=== PATIENT | female | born 1955 | race Caucasian/White ===

== ENCOUNTER 2018-06-24 10:31 | Outpatient (REF) | payer BC, SELFPAY ==
[2018-06-24 19:16] LABS: Cholesterol 243 mg/dL (50-200); HDL Cholesterol 125 mg/dL (40-60); LDL CHOLESTEROL 105 mg/dL (<100); Triglyceride 56 mg/dL (30-150)
== END 2018-06-24 10:51 ==
LOC: NCHCN 10:31
PROVIDERS: PCP Internal Medicine; Visit Provider Nurse Practitioner Family
DX: Z00.00 Encounter for general adult medical examination without abnormal findings (principal); Z13.220 Encounter for screening for lipoid disorders
CPT/HCPCS: 80061; 83721

== ENCOUNTER 2018-11-18 00:43 | Outpatient (CLI) | payer BC, SELFPAY ==
--- NOTE | 2018-11-18 10:00 | DI.MAMMO_ITS ---
SYMPTOM/DIAGNOSIS: SCREENING, Z12.31 MAMMOGRAMS: Mammograms were interpreted according to the usual protocol including computer analysis with CAD system, tomosynthesis and C view imaging. Comparison is made with exams from [id number]. The breasts are composed of fatty density tissue, breast density, category A. No suspicious masses or suspicious microcalcifications are seen. There has been no significant change. IMPRESSION: Category 1, negative mammogram. Yearly screening mammography is recommended. [facility] ASSESSMENT OF FINDINGS: Negative. Category 1. Patient will receive a letter notifying them of these results. BI-RAD category A. The breasts are almost entirely fatty.
== END 2018-11-18 01:03 ==
PROVIDERS: PCP Internal Medicine; Visit Provider Nurse Practitioner Family
DX: Z12.31 Encounter for screening mammogram for malignant neoplasm of breast (principal)
CPT/HCPCS: 77063; 77067

== ENCOUNTER 2018-12-20 11:12 | Day surgery (SDC) | payer BC, SELFPAY ==
[2018-12-20 11:27] VITALS: BP 111/76; PULSE 71; RESP 18; TEMP 35.5; O2SAT 99
[2018-12-20] MEDS: Lactated Ringers 1,000 ML 80 ML IV (11:50)
--- NOTE | 2018-12-20 14:18 | W.COLOREPORT ---
Date of service: 12/20/18 Time of Service: 14:18 Colonoscopy Report Date of procedure: 12/20/18 Pre-op diagnosis general: crc screen Post-op diagnosis procedure note: same Procedure: CE Anesthesia proc note operative: GETA Estimated blood loss (mL): 0 Pathology: none sent Complications: None Disposition: same day Prep: Miralax Retraction Time: 10 mins Procedure Description: After informed consent was obtained the patient was taken to the procedure room and placed in a left decubitous position. Monitors were applied and a time out was done. The patients name, date of , procedure, allergies to medications and metal in their body was reviewed. The patient was then sedated. Once sedated and comfortable a rectal exam was done. External exam was normal. Internal exam revealed a normal sphincter tone and no palpable masses. The scope was then introduced and retrofelexed. no internal hemorrhoids were identified. The scope was then advanced to the cecum without difficulty. The TI and appendiceal orifice were identified. The prep was good. The scope was then slowly retracted over 10 minutes back into the rectum. No AVM'S/polyps/diverticuli seen. The muscosa was pink adn healthy adn nl vasculature. The scope was removed and the patient was woken up and taken back to Same day surgery in stable condition. The patient tolerated the procedure well and there were no immediate complications. Follow up: The patient should follow up in 10 years unless they develop changes in bowel habits or other new gastrointestinal complaints.
--- NOTE | 2018-12-20 14:20 | W.PM.DSUDISC ---
Discharge Plan Disposition Patient Disposition: HOME Condition: Good Discharge Details Reason For Visit: colon scope Attending Provider: Karlene Leonard Primary Care Provider: Glynn Marquez Home Meds and New Rx's Prescriptions: Continued aspirin [Adult Aspirin Regimen] 81 mg tablet,delayed release (DR/EC) 81 mg PO DAILY RF: 0 omega-3 fatty acids [Fish Oil Concentrate] 1,000 mg capsule 1,000 mg PO DAILY RF: 0 ascorbic acid (vitamin C) 1,000 MG tablet 1,000 mg PO DAILY RF: 0 potassium gluconate 99 MG tablet 99 mg PO DAILY RF: 0 Discontinued polyethylene glycol 3350 17 gram/dose powder 238 g PO ONCE Qty: 238 RF: 0 bisacodyl [Dulcolax (bisacodyl)] 5 mg tablet,delayed release (DR/EC) 5 mg PO ONCE Qty: 4 RF: 0 Discharge Instructions Instructions: High Fiber Diet (GEN) Additional Instructions: Findings: normal Follow up:repeat in 10 yrs time Please call if you develop: fevers >101.5 Nausea or Vomiting Abdominal pain that is not transient DAY SURGERY UNIT POST COLONOSCOPY INSTRUCTIONS 1. Because there will be medication in your system for the next 24 hours, you may feel a little sleepy. Your coordination will be affected. Therefore: a. Do not drive or operate dangerous equipment for 24 hours. b. Do not drink alcohol beverages for 24 hours (not even beer). c. Plan to go home and rest for the day. 2. Generally there are no restrictions on your activity after a day or so has gone by, but you may feel a bit fatigued for a few days. 3 After you arrive home you may have a light meal and return to a normal diet as you can tolerate it without feeling sick to your stomach. 4. After surgery, you may feel pain or discomfort. This should be only transient, but if it persists please contact your doctor. 5. If there are any questions regarding the findings of your procedure, please feel free to contact your doctor. 6. If you are unable to contact your doctor with a problem, contact the hospital at [phone]. 7. Continue all your regular medications unless directed otherwise. I understand the above instructions and have no questions. Signature of Patient or Responsible Adult Escort Date/Time Name of Responsible Adult Escort Signature of Nurse Date/Time Stand Alone Forms: Aneudy Mackey (DSU) Activity:: no strenous activity or heavy lifting or driving for 24 hrs Diet:: sm lt meals today Discharge Orders Discharge Orders: Discharge Order (Routine); Ordered 12/20/18 Ordered By: Karlene Leonard DS: Diagnosis Discharge Diagnosis (1) Encounter for screening colonoscopy: Status: Acute
[2018-12-20 14:55] VITALS: BP 111/69; PULSE 59; RESP 18; TEMP 36.6; O2SAT 99
== END 2018-12-20 15:04 | disposition home or self-care (01) ==
PROVIDERS: PCP Internal Medicine; Visit Provider Surgery
PROC: 0DJD8ZZ Inspection of Lower Intestinal Tract, Via Natural or Artificial Opening Endoscopic (ICD-10-PCS; CPT 45378; principal; 2018-12-20 11:15)
DX: Z12.11 Encounter for screening for malignant neoplasm of colon (principal)
CPT/HCPCS: 45378

== ENCOUNTER 2020-01-22 01:53 | Outpatient (CLI) | payer BC, SELFPAY ==
--- NOTE | 2020-01-22 11:00 | DI.MAMMO_ITS ---
EXAM: MAMMO SCREENING CLINICAL HISTORY: screening TECHNIQUE: Mammograms were interpreted according to the usual protocol including computer analysis w [employer] CAD system, tomosynthesis and C-view imaging. COMPARISON: FINDINGS: The breasts are of moderate density with fairly symmetrical distribution fibroglandular tissue. No d ominant mass is identified in either breast. There is a group of benign-appearing calcifications of posterior aspect of the left breast seen on MLO view which stable in comparison with prior studies. No suspicious microcalcification seen. No other significant change in comparison previous examinatio ns including October 2018. IMPRESSION: No specific evidence of malignancy at this time. Routine screening examinations are suggested yearly intervals in this age group according to the ACS ACR guidelines. BI-RADS Category 1 - Negative Breast Density - Category B - Scattered areas of fibroglandular density
== END 2020-01-22 02:13 ==
PROVIDERS: PCP Internal Medicine; Visit Provider Nurse Practitioner Family
DX: Z12.31 Encounter for screening mammogram for malignant neoplasm of breast (principal)
CPT/HCPCS: 77063; 77067

== ENCOUNTER 2021-03-31 01:28 | Outpatient (CLI) | payer BC, SELFPAY ==
--- NOTE | 2021-03-31 09:30 | DI.MAMMO_ITS ---
Exam(s) MAMMO SCREENING EXAM: MAMMO SCREENING CLINICAL HISTORY: screening TECHNIQUE: Mammograms were interpreted according to the usual protocol including computer analysis w [employer] CAD system, tomosynthesis and C-view imaging. COMPARISON: 2010 through 2019 FINDINGS: The breasts are composed of scattered fibroglandular densities, Breast Density category B. No suspicious masses or suspicious microcalcifications are seen. No skin thickening or abnormal axillary lymph nodes are seen. There has been no significant change from prior exams. IMPRESSION: BI-RADS Category 1, Negative mammogram Yearly screening mammography is recommended. Breast Density - Category B, scattered fibroglandular densities. A negative radiographic report should not delay biopsy if a dominant or clinically suspicious mass is present. Up to ten percent of cancers are not identified on mammography. A negative report may reinforce clinical impression. Adenosis and dense breasts may obscure an underlying neoplasm. False positive reports average 6 to 10%. Patient will receive a letter notifying them of these results.
== END 2021-03-31 01:48 ==
PROVIDERS: PCP Internal Medicine; Visit Provider Nurse Practitioner Family
DX: Z12.31 Encounter for screening mammogram for malignant neoplasm of breast (principal)
CPT/HCPCS: 77063; 77067

== ENCOUNTER 2021-03-31 12:26 | Outpatient (REF) | payer BC, SELFPAY ==
--- NOTE | 2021-03-31 11:00 | PAPFT_PTH ---
PATIENT: Karlene Ambrocio LOC: [facility] U#:[id number] AGE/SX: 65/F ROOM: RE03/31/[address]: LULU Allen : 1955 BED: DIS: 03/31/2021 SPEC #: [id number] RECD: 03/31/21 13:12 STATUS: RHONDA REJoseph #: [id number] NOY: 03/31/21 11:[address]: Jana Dias DEPT: [facility] Cytology RECD BY: Zaira Yan ENTERED: 03/31/21 13:13 SP TYPE: PAPFT OTHR DR: Glynn Marquez Tissues: 1 - CX/ENDOCX FOR PAP SMEARS Procedures: PAP THIN PREP/UVM Screening HPV DNA PROBE Comments: [id number]
== END 2021-03-31 12:27 | disposition home or self-care (01) ==
LOC: LBN 12:26
PROVIDERS: PCP Internal Medicine; Visit Provider Nurse Practitioner Family
DX: Z12.4 Encounter for screening for malignant neoplasm of cervix (principal); Z11.51 Encounter for screening for human papillomavirus (HPV); Z01.419 Encounter for gynecological examination (general) (routine) without abnormal findings
CPT/HCPCS: 88142; 87624

== ENCOUNTER → 2022-05-25 02:56 | Outpatient (CLI) | payer BC, SELFPAY ==
--- NOTE | 2022-05-25 06:45 | DI.MAMMO_ITS ---
Exam(s) MAMMO SCREENING EXAM: MAMMO SCREENING CLINICAL HISTORY: screening,z12.39 TECHNIQUE: Bilateral full field digital CC and MLO mammographic images were obtained with 3D tomosyn thesis and utilizing computer aided detection (CAD). COMPARISON: Available for comparison. FINDINGS: Masses/Architectural Distortion: None seen. Microcalcifications: No suspicious pleomorphic-type are seen. Skin Thickening/Nipple Retraction: None. IMPRESSION: 1. No significant interval change with no specific features of malignancy noted. 2. Unless there is more urgent need, screening mammography is recommended, as per [employer] guidelines. BI-RADS Category 1 - Negative Breast Density - Category B - Scattered areas of fibroglandular density Breast density category C or D implies that the patient has dense breast tissue. Dense breast tissue is very common and is not abnormal but dense breast tissue can make it harder to find cancer on a ma mmogram. Also, dense breast tissue may increase their breast cancer risk. This information about the result of the mammogram report was provided to the patient to raise their awareness. Use this report when you speak with the patient about their risks for breast cancer, which includes their family hist ory. At that time, you may recommend for more screening tests (Ultrasound or MRI) as they might be us eful based on their risk. A negative radiographic report should not delay biopsy if a dominant or clinically suspicious mass is present. Up to ten percent of cancers are not identified on mammography. A negative report may reinforce clinical impression. Adenosis and dense breasts may obscure an underlying neoplasm. False positive reports average 6 to 10%. Patient will receive a letter notifying them of these results.
== END ==
PROVIDERS: PCP Nurse Practitioner Adult Health; Visit Provider Nurse Practitioner Adult Health
DX: Z12.31 Encounter for screening mammogram for malignant neoplasm of breast (principal)
CPT/HCPCS: 77063; 77067

== ENCOUNTER → 2023-05-28 02:11 | Outpatient (CLI) | payer BC, SELFPAY ==
--- NOTE | 2023-05-28 12:15 | DI.MAMMO_ITS ---
Exam(s) MAMMO SCREENING EXAM: MAMMO SCREENING CLINICAL HISTORY: screening TECHNIQUE: Mammograms were interpreted according to the usual protocol including computer analysis w [employer] CAD system, tomosynthesis and C-view imaging. COMPARISON: 2012 through 2021 FINDINGS: The breasts are composed of mainly fatty density , Breast Density category A. No suspicious masses or suspicious microcalcifications are seen. No skin thickening or abnormal axillary lymph nodes are seen. There has been no significant change from prior exams. IMPRESSION: BI-RADS Category 1, Negative mammogram Yearly screening mammography is recommended. Breast Density - Category A, fatty density. A negative radiographic report should not delay biopsy if a dominant or clinically suspicious mass is present. Up to ten percent of cancers are not identified on mammography. A negative report may reinforce clinical impression. Adenosis and dense breasts may obscure an underlying neoplasm. False positive reports average 6 to 10%. Patient will receive a letter notifying them of these results.
== END ==
PROVIDERS: PCP Nurse Practitioner Adult Health; Visit Provider Obstetrics & Gynecology
DX: Z12.31 Encounter for screening mammogram for malignant neoplasm of breast (principal)
CPT/HCPCS: 77063; 77067

== ENCOUNTER 2024-06-06 00:37 | Outpatient (CLI) | payer BC, SELFPAY ==
--- OUTSIDE RECORDS SUMMARY | 2024-06-06 00:43 | XMS_ITS | Encounter Summary ---
Author Organization [facility] Address [address] [place] [id number] Care Team Providers Care Wire Bound Box Machine Helper Name Role Phone Glynn Marquez MD Primary Care Provider [phone] Encounter Details Date Type Department Care Team (Late st Contact Info) Description 08/16/2012 Results Only [facility] Laboratory Services - [facility] ([facility]) [address] [place], [place] [id number] Jana Dias, [facility] [address] [place] [address] [phone] Social History Tobacco Use Types Packs/Day Years Used Date Smoking Tobacco: Never Assessed Sex and Gender Information Value Date Recorded Sex Assigned at Not on file Gender Identity Not on file Sexual Orientation Not on file documented as of this encounter Plan of Treatment Not on file documented as of this encounter Procedures Procedure Name Priority Date/Time Associated Diagnosis Comments PAP TEST- RESULT ONLY Routine 08/16/2012 0:00 EST documented in this encounter Results * PAP TEST- RESULT ONLY (08/16/2012 0:00 EST) Pathology Report: CYTOPATHOLOGY REPORT Reports generated via electronic interface contain original data; however they are lacking the format of the original report. Caution should be taken when reading/interpreti ng unformatted reports. Name: ? ANGELA EMILE Casey ? Accession #: ? [id number] : ? 1955 (Age: 57) ??F ?Collect Date: ? 08/16/2012 Location: ? [facility] ? Receive Date: ? 08/19/2012 Provider: ?JANA DIAS CLAY WASHER Copy to: ? Specimen/Source: ?Pap Test, Cervix/Endocervix, ThinPrep Imaging System with manual evaluation Last Menstrual Period: ? 02/06 ? SPECIMEN ADEQUACY ? Satisfactory for Evaluation - transformation zone component absent GENERAL CATEGORIZATION ? Negative for Intraepithelial Lesion or Malignancy ? Document reviewed and electronically signed by: ? HUSSAIN Soria(ASCP) ? Report Date: ??08/22/2012 15:33 End of Report [facility] 08/16/2012 08/19/2012 Jana Dias CLAY WASHER PATHOLOGY ORDERABLES Performing Organization Address City/State/[facility] Co de Phone Number [facility] [address] [place] [address] documented in this encounter Visit Diagnoses Not on filedocumented in this encounter Care Teams Wire Bound Box Machine Helper Relationship Specialty Start Date End Date Glynn Marquez MD [address] [place] [address] PCP - General 01/11/09 documented as of this encounter
--- OUTSIDE RECORDS SUMMARY | 2024-06-06 00:43 | XMS_ITS | Encounter Summary ---
Author Organization [facility] Address [address] [place] [address] Care Team Providers Care Cylinder Tester Name Role Phone Glynn Marquez MD Primary Care Provider [phone] Encounter Details Date Type Department Care Team (Late st Contact Info) Description 01/12/2010 Results Only [facility] OBGYN Services - [facility] [address] [place], [place] [id number] Yg Colin MD [address] [place] [address] [phone] Social History Tobacco Use Types Packs/Day Years Used Date Smoking Tobacco: Never Assessed Sex and Gender Information Value Date Recorded Sex Assigned at Not on file Gender Identity Not on file Sexual Orientation Not on file documented as of this encounter Plan of Treatment Not on file documented as of this encounter Procedures Procedure Name Priority Date/Time Associated Diagnosis Comments CLIENT RETENTION SPECIALIST US PELVIS TRANSVAGINAL 01/19/2010 13:09 EDT documented in this encounter Results * CLIENT RETENTION SPECIALIST US PELVIS TRANSVAGINAL (01/19/2010 13:09 EDT) Anatomical Region Laterality Modality Other 01/19/2010 13:0 9 EDT 01/19/2010 13:26 EDT Narrative 01/19/2010 13:26 EDT Indication: Screening for ovarian cancer: family history of ovarian or related cancer. Gynecological Ultrasonography: Uterus: anteverted. Size: Longitudinal 87 mm. Anterio- posterior 45 mm. Transverse 58 mm. Volume: 118.9 ml. Cervix: normal. Myometrium: The following features were observed in the myometrium suggestive of adenomyosis. Endometrium: endometrium clearly visualized. Endometrium thickness total: 5.4 mm. Right Ovary: normal. Visualized but suboptimal. Morphology: normal morphology. Right Ovary size: 15 mm x 16 mm x 15 mm. Volume: 1.9 ml. Left Ovary: normal. Visualized but suboptimal. Morphology: normal morphology. Left Ovary size: 16 mm x 16 mm x 15 mm. Volume: 2.0 ml. Cul de Sac / Pouch of Esteban: no free fluid visible. Method: transvaginal ultrasound. Summary of ultrasound findings: Normal CLIENT RETENTION SPECIALIST Ultrasound. Both ovaries well seen Impression: A/A. D/W Dr Colin service. F/U Dr. Colin Procedure Note 01/19/2010 Indication: Screening for ovarian cancer: family history of ovarian or related cancer. Gynecological Ultrasonography: Uterus: anteverted. Size: Longitudinal 87 mm. Anterio- posterior 45 mm. Transverse 58 mm. Volume: 118.9 ml. Cervix: normal. Myometrium: The following features were observed in the myometrium suggestive of adenomyosis. Endometrium: endometrium clearly visualized. Endometrium thickness total: 5.4 mm. Right Ovary: normal. Visualized but suboptimal. Morphology: normal morphology. Right Ovary size: 15 mm x 16 mm x 15 mm. Volume: 1.9 ml. Left Ovary: normal. Visualized but suboptimal. Morphology: normal morphology. Left Ovary size: 16 mm x 16 mm x 15 mm. Volume: 2.0 ml. Cul de Sac / Pouch of Esteban: no free fluid visible. Method: transvaginal ultrasound. Summary of ultrasound findings: Normal CLIENT RETENTION SPECIALIST Ultrasound. Both ovaries well seen Impression: A/A. D/W Dr Colin service. F/U Dr. Colin Yg Colin MD IMG US CLIENT RETENTION SPECIALIST ORD ERABLES documented in this encounter Visit Diagnoses Not on filedocumented in this encounter Care Teams Cylinder Tester Relationship Specialty Start Date End Date Glynn Marquez MD [address] [place] [address] PCP - General 01/11/09 documented as of this encounter
--- OUTSIDE RECORDS SUMMARY | 2024-06-06 00:43 | XMS_ITS | Encounter Summary ---
Author Organization [facility] Address [address] [place] [address] Care Team Providers Care Seed Corn Manager Production Name Role Phone Glynn Marquez MD Primary Care Provider Encounter Details Date Type Department Care Team (Late st Contact Info) Description 04/01/2021 Lab Requisition [facility] Pathology & Laboratory Medicine - [address] [address] Jana Dias, [facility] [address] [place] [phone] Encounter for other general examination Social History Tobacco Use Types Packs/Day Years Used Date Smoking Tobacco: Never Assessed Sex and Gender Information Value Date Recorded Sex Assigned at Not on file Gender Identity Not on file Sexual Orientation Not on file documented as of this encounter Plan of Treatment Not on file documented as of this encounter Procedures Procedure Name Priority Date/Time Associated Diagnosis Comments PAP TEST Today 03/31/2021 11:00 EDT Encounter for other general examination HPV DNA DETECTION WITH GENOTYPING, PCR Today 03/31/2021 11:00 EDT Encounter for other general examination documented in this encounter Results * HUMAN PAPILLOMAVIRUS (HPV) DETECTION-HIGH RISK TYPES (03/31/2021 11:00 EDT) HPV other High Risk types, PCR Negative Negative 04/15/2021 14:36 EDT [facility] Comment:No E6 or E7 mRNA is detected from HPV types 16,18,31,33,35,39,45,51,52,56,58,59,66, and 68 by siding coreboard inspector mediated amplification. Papanicolaou smear specimen (specimen) CERVIX UTERI STRUCTURE / Unknown 03/31/2021 11:00 EDT 04/13/2021 13:40 EDT Jana Dias ASSOCIATE DIRECTOR DATA & ANALYTICS MICROBIOLOGY - GENER AL ORDERABLES [facility] [address] [place] [id number] * PAP TEST (03/31/2021 11:00 EDT) Specimens A. Cervix and/or Endocervix , ThinPrep Imaging System with Manual Evaluation 04/15/2021 14:36 [facility] Specimen Adequacy Satisfactory for Evaluation - transformation zone component present 04/15/2021 14:36 [facility] General Categorization Negative for intraepithelial lesion or malignancy 04/15/2021 14:36 [facility] Attestation . 04/15/2021 14:36 [facility] at 1436 Clinical History See below 04/15/20 14:36 [facility] HPV The result for the Human Papillomavirus (HPV) Detection-High Risk Types is Negative. No E6 or E7 mRNA is detected from HPV types 16,18,31,33,35,39 ,45,51,52,56,58,5 9,66, and 68 by siding coreboard inspector mediated amplification.Gabbie ting was performed on specimen [id number] and was resulted on 04/15/2021 1429 EDT by RONNIE, LAB INSTRUMENT RESULTS IN 04/15/2021 14:36 T [facility] Performing Lab [facility] 04/15/2021 14:36 T [facility] Scanned Images 04/15/2021 14:36 [facility] Papanicolaou smear specimen (specimen) CERVIX UTERI STRUCTURE / Unknown 03/31/2021 11:00 EDT 04/01/2021 15:32 EDT Jana Dias ASSOCIATE DIRECTOR DATA & ANALYTICS PATHOLOGY ORDERABLES [facility] [address] [place] [address] documented in this encounter Visit Diagnoses Diagnosis Encounter for other general examination documented in this encounter Care Teams Seed Corn Manager Production Relationship Specialty Start Date End Date Glynn Marquez MD [address] [place] [address] PCP - General 01/11/09 documented as of this encounter
--- OUTSIDE RECORDS SUMMARY | 2024-06-06 00:43 | XMS_ITS | Encounter Summary ---
Author Organization [facility] Address [address] [place] [address] Care Team Providers Care Smoking Tobacco Packer Hand Name Role Phone Glynn Marquez MD Primary Care Provider Encounter Details Date Type Department Care Team (Late st Contact Info) Description 05/21/2001 Results Only [facility] - [facility] [address] [place] [address] Madhu Esparza CNM Social History Tobacco Use Types Packs/Day Years Used Date Smoking Tobacco: Never Assessed Sex and Gender Information Value Date Recorded Sex Assigned at Not on file Gender Identity Not on file Sexual Orientation Not on file documented as of this encounter Plan of Treatment Not on file documented as of this encounter Procedures Procedure Name Priority Date/Time Associated Diagnosis Comments CYTOPATHOLOGY Routine 05/21/2001 0:00 EDT documented in this encounter Results * CYTOPATHOLOGY (05/21/2001 0:00 EDT) Pathology Report: CYTOPATHOLOGY REPORT Reports generated via electronic interface contain original data; however they are lacking the format of the original report. Caution should be taken when reading/interpreti ng unformatted reports. Name: ? EMILE AMBROCIO ? Accession #: ? [id number] : ? 1955 (Age: 45) ??F ?Collect Date: ? 05/21/2001 Location: ? [facility] ? Receive Date: ? 05/23/2001 Provider: ?MADHU ESPARZA CNM Copy to: ? Specimen/Source: ?ThinPrep Pap Test, Cervix/Endocervix Last Menstrual Period: ? 05/16/01 ? SPECIMEN ADEQUACY ? Satisfactory for evaluation. GENERAL CATEGORIZATION ? Within Normal Limits ? Document reviewed and electronically signed by: ? Barbara Santamaria, ??SCT(ASCP) ? Report Date: ??05/24/2001 13:17 End of Report [facility] 05/21/2001 05/23/2001 Madhu Esparza CNM PATHOLOGY ORDERABLES Performing Organization Address City/State/[facility] Co de Phone Number [facility] [address] [place] [address] documented in this encounter Visit Diagnoses Not on filedocumented in this encounter Care Teams Smoking Tobacco Packer Hand Relationship Specialty Start Date End Date Glynn Marquez MD [address] [place] [address] PCP - General 01/11/09 documented as of this encounter
--- OUTSIDE RECORDS SUMMARY | 2024-06-06 00:43 | XMS_ITS | Encounter Summary ---
Author Organization [facility] Address [address] [place] [address] Care Team Providers Care Hotel Guest Service Agent Name Role Phone Glynn Marquez MD Primary Care Provider [phone] Encounter Details Date Type Department Care Team (Late st Contact Info) Description 12/05/2004 Results Only [facility] - Maple conversion [address] [place] [address] Madelin Pierre, [address] [address] Social History Tobacco Use Types Packs/Day Years Used Date Smoking Tobacco: Never Assessed Sex and Gender Information Value Date Recorded Sex Assigned at Not on file Gender Identity Not on file Sexual Orientation Not on file documented as of this encounter Plan of Treatment Not on file documented as of this encounter Procedures Procedure Name Priority Date/Time Associated Diagnosis Comments CYTOPATHOLOGY Routine 12/05/2004 0:00 EDT documented in this encounter Results * CYTOPATHOLOGY (12/05/2004 0:00 EDT) Pathology Report: CYTOPATHOLOGY REPORT Reports generated via electronic interface contain original data; however they are lacking the format of the original report. Caution should be taken when reading/interpreti ng unformatted reports. Name: ? EMILE AMBROCIO ? Accession #: ? [id number] : ? 1955 (Age: 49) ??F ?Collect Date: ? 12/05/2004 Location: ? [facility] ? Receive Date: ? 12/07/2004 Provider: ?MADELIN PIERRE CNM Copy to: ? Specimen/Source: ?ThinPrep Pap Test, Cervix/Endocervix Last Menstrual Period: ? 11/22/04 Other: ? HPVA - HPV testing requested if ASC-US on the current ThinPrep Pap test. ? SPECIMEN ADEQUACY ? Satisfactory for Evaluation - transformation zone component absent GENERAL CATEGORIZATION ? Negative for Intraepithelial Lesion or Malignancy ? Document reviewed and electronically signed by: ? Dilma Roper, SCT(ASCP) ? Report Date: ??12/13/2004 10:09 End of Report [facility] 12/05/2004 12/07/2004 Madelin Pierre CNM PATHOLOGY [facility] [address] [place] [address] documented in this encounter Visit Diagnoses Not on filedocumented in this encounter Care Teams Hotel Guest Service Agent Relationship Specialty Start Date End Date Glynn Marquez MD [address] [place] [address] PCP - General 01/11/09 documented as of this encounter
--- OUTSIDE RECORDS SUMMARY | 2024-06-06 00:43 | XMS_ITS | Encounter Summary ---
Author Organization [facility] Address [address] [place] [address] Care Team Providers Care Pig Iron Loader Name Role Phone Glynn Marquez MD Primary Care Provider Reason for Referral * (Routine) - Closed Specialty Diagnoses / Procedures Referred By Belén moss Referred To Contact Diagnoses Family history of ovarian cancer Procedures CA 125 Brittani Carmona RN Referral ID Status Reason Start Date Expiration Date Visits Re quested Visits Authorized [id number] Closed 08/23/2010 1 1 Reason for Visit * Reason Comments Follow-up ovarian cancer melvin aaron Encounter Details Date Type Department Care Team (Late st Contact Info) Description 08/23/2010 13:30 EST Office Visit [facility] - [address] [id number] Yg Colin MD [address] [place] [address] DR BECKER [address] [place] [phone] Pap smear for cervical cancer screening (Primary Dx); Family history of ovarian cancer Social History Tobacco Use Types Packs/Day Years Used Date Smoking Tobacco: Never Assessed Sex and Gender Information Value Date Recorded Sex Assigned at Not on file Gender Identity Not on file Sexual Orientation Not on file documented as of this encounter Last Filed Vital Signs Vital Sign Reading Time Taken Comments Blood Pressure - - Pulse - - Temperature - - Respiratory Rate - - Oxygen Saturation - - Inhaled Oxygen Concentration - - Weight 70.3 kg (155 lb) 08/23/2010 1328 EST Height 162.6 cm (5' 4) 08/23/2010 1328 EST Body Mass Index 26.61 08/23/2010 1328 EST documented in this encounter Progress Notes * Yg Colin MD - 08/26/2010 1122 EST Subjective: Patient ID: Karlene Ambrocio is an 55 y.o. female. Chief Complaint Patient presents with ??? Follow-up ovarian cancer screening HPI Comments: Ms Karlene Ambrocio is a 55 y.o. woman with a family history of breast and ovarian carcinoma. Her mother this past year from progressive metastatic ovarian carcinoma. She presents today for a screening evaluation. Overall she is doing well. She denies any vaginal bleeding, abdominal pain, changes in bowel or urinary habits, nausea, vomiting, chest pain, shortness of breath, lower extremity edema or other complaints. Patient Active Problem List Diagnoses Code ??? Family history of breast cancer V16.3B ??? Family history of ovarian cancer V16.41D History reviewed. No pertinent past medical history. History reviewed. No pertinent past surgical history. History reviewed. No pertinent family history. Social History Substance Use Topics ??? Smoking status: Not on file ??? Smokeless tobacco: Not on file ??? Alcohol Use: Not on file No current outpatient prescriptions on file prior to encounter. No Known Allergies Review of Systems Constitutional: Negative. Negative for fever, chills, weight loss and malaise/fatigue. HENT: Negative. Eyes: Negative. Respiratory: Negative. Cardiovascular: Negative. Negative for chest pain. Gastrointestinal: Negative. Negative for nausea, vomiting, abdominal pain, diarrhea, constipation and blood in stool. Genitourinary: Negative. Musculoskeletal: Negative. Skin: Negative. Neurological: Negative. Endo/Heme/Allergies: Negative. Psychiatric/Behavioral: Negative. All other systems reviewed and are negative. - See HPI Objective: Ht 162.6 cm (64) Wt 70.308 kg (155 lb) LMP 07/22/2010 Physical Exam Constitutional: She is oriented to person, place, and time. She appears well- developed and well-nourished. No distress. HENT: Head: Normocephalic. Eyes: No scleral icterus. Neck: Neck supple. No tracheal deviation present. No thyromegaly present. Cardiovascular: Normal rate and regular rhythm. Pulmonary/Chest: Effort normal and breath sounds normal. No respiratory distress. She has no wheezes. She has no rales. She exhibits no tenderness. Abdominal: Soft. She exhibits no distension and no mass. No tenderness. Genitourinary: Vagina normal and uterus normal. No labial fusion. There is no rash, tenderness, lesion or injury on the right labia. There is no rash, tenderness, lesion or injury on the left labia. Cervix exhibits no motion tenderness, no discharge and no friability. Right adnexum displays no mass, no tenderness and no fullness. Left adnexum displays no mass, no tenderness and no fullness. Musculoskeletal: She exhibits no edema and no tenderness. Lymphadenopathy: She has no cervical adenopathy. Right: No inguinal and no supraclavicular adenopathy present. Left: No inguinal and no supraclavicular adenopathy present. Neurological: She is alert and oriented to person, place, and time. Skin: Skin is warm and dry. Psychiatric: She has a normal mood and affect. Her behavior is normal. Judgment and thought contentnormal. Assessment and Plan: Ms Karlene Ambrocio is a 55 y.o. woman with a family history of breast and ovarian carcinoma. Her mother this past year from progressive metastatic ovarian carcinoma. She presents today fora screening evaluation. We are pleased to report that on today's evaluation there is no evidence of clinical recurrence. Wewill notify Ms. Ambrocio of her test results. She will have an ultrasound and CA-125 in 6 months and I will see her back for a clinical examination in one year. Thank you for letting me participate in Ms. Ambrocio's care. If you have any questions please feel free to call or page me directly. Karlene was seen today for follow-up. Diagnoses and associated orders for this visit: Pap smear for cervical cancer screening - Pap Test Family history of ovarian cancer - CA 125; Future - CA 125 - JET PILOT US PELVIS TRANSVAGINAL Other Orders - Cancel: CA 125 documented in this encounter Plan of Treatment Scheduled Orders Name Type Priority Associated Diagnoses Orde r Schedule PAP TEST- ORDER ONLY Pathology Routine Pap Smear for Cervical Cancer Screening Ordered: 08/23/2010 CA 125 Lab Routine Family History of Ovarian Cancer Expected: 08/23/2010, Expires: 08/23/2011 documented as of this encounter Procedures Procedure Name Priority Date/Time Associated Diagnosis Comments JET PILOT US PELVIS TRANSVAGINAL Routine 02/22/2012 10:31 EDT Family history of ovarian cancer documented in this encounter Results * JET PILOT US PELVIS TRANSVAGINAL (02/22/2012 10:31 EDT) Anatomical Region Laterality Modality Other 02/22/2012 10:3 1 EDT 02/22/2012 10:48 EDT Narrative 02/22/2012 10:48 EDT Indication: Screening for ovarian cancer: family history of ovarian cancer. Gynecological Ultrasonography: Uterus: anteverted. Size: Longitudinal 62 mm. Anterio- posterior 36 mm. Transverse 38 mm. Volume: 44.4 ml. Cervix: normal. Myometrium: fibroid-this is new. Previous ultrasounds showed a heterogeneous uterus. Fibroids: Fibroid 1: Size: 17 mm x 15 mm x 16 mm. Type: intramural fibroid. Position: anterior. Endometrium: endometrium clearly visualized. The endometrial thickness is normal for a postmenopausal woman (< 5.0 mm). Endometrium thickness total: 1.9 mm. Right Ovary: normal. Right Ovary size: 15 mm x 14 mm x 11 mm. Volume: 1.2 ml. Left Ovary: normal. Left Ovary size: 11 mm x 16 mm x 11 mm. Volume: 1.0 ml. Cul de Sac / Pouch of Esteban: no free fluid visible. Patient apprised of findings. Procedure Note 02/22/2012 Indication: Screening for ovarian cancer: family history of ovarian cancer. Gynecological Ultrasonography: Uterus: anteverted. Size: Longitudinal 62 mm. Anterio- posterior 36 mm. Transverse 38 mm. Volume: 44.4 ml. Cervix: normal. Myometrium: fibroid-this is new. Previous ultrasounds showed a heterogeneous uterus. Fibroids: Fibroid 1: Size: 17 mm x 15 mm x 16 mm. Type: intramural fibroid. Position: anterior. Endometrium: endometrium clearly visualized. The endometrial thickness is normal for a postmenopausal woman (< 5.0 mm). Endometrium thickness total: 1.9 mm. Right Ovary: normal. Right Ovary size: 15 mm x 14 mm x 11 mm. Volume: 1.2 ml. Left Ovary: normal. Left Ovary size: 11 mm x 16 mm x 11 mm. Volume: 1.0 ml. Cul de Sac / Pouch of Esteban: no free fluid visible. Patient apprised of findings. Yg Colin MD IMG JET PILOT ORD ERABLES documented in this encounter Visit Diagnoses Diagnosis Pap smear for cervical cancer screening- Primary Screening for malignant neoplasm of the cervix Family history of ovarian cancer Family history of malignant neoplasm of ovary documented in this encounter Care Teams Pig Iron Loader Relationship Specialty Start Date End Date Glynn Marquez MD [address] [place] [address] PCP - General 01/11/09 documented as of this encounter
--- OUTSIDE RECORDS SUMMARY | 2024-06-06 00:43 | XMS_ITS | Encounter Summary ---
Author Organization [facility] Address [address] [place] [address] Care Team Providers Care Ios Software Engineer Name Role Phone Unavailable Primary Care Provider Unavailabl e Encounter Details Date Type Department Care Team (Late st Contact Info) Description 07/03/2008 11:05 EST - 07/03/2008 11:59 EST Hospital Encounter [facility] [address] [place] [address] Elaine Colin MD [address] [place] [address] DR BECKER [address] [place] [phone] Kiara Blair MD [address] [place] [address] [address] [place] [phone] Discharge Disposition: Auto Discharge Social History Tobacco Use Types Packs/Day Years Used Date Smoking Tobacco: Never Assessed Sex and Gender Information Value Date Recorded Sex Assigned at Not on file Gender Identity Not on file Sexual Orientation Not on file documented as of this encounter Discharge Disposition Disposition Code Departure Means Destination Auto Discharge documented in this encounter Plan of Treatment Not on file documented as of this encounter Procedures Procedure Name Priority Date/Time Associated Diagnosis Comments CYTOPATHOLOGY Routine 01/12/2009 0:00 EDT FITTING ROOM OPERATOR US PELVIS TRANSVAGINAL 07/03/2008 11:55 EST documented in this encounter Results * CYTOPATHOLOGY (01/12/2009 0:00 EDT) Pathology Report: CYTOPATHOLOGY REPORT ? Reports generated via electronic interface contain original data; ? however they are lacking the format of the original report. ? Caution should be taken when reading/interpreti ng unformatted reports. ? Name: ? EMILE AMBROCIO ? Accession #: ? [id number] ? : ? 1955 (Age: 53) ??F ?Collect Date: ? 01/12/2009 ? Location: ? [facility] ? Receive Date: ? 01/13/2009 ? Provider: ?ELAINE COLIN MD ? Copy to: ? Specimen/Source: ?Pap Test, Cervix, ThinPrep Imaging System with manual ?? evaluation ? Last Menstrual Period: ? 6/09 ? Other: ? Additional clinical information: family hx of Ovarian CA ? HPVA - HPV testing requested if ASC-US on the current ThinPrep Pap test. ? SPECIMEN ADEQUACY ? Satisfactory for Evaluation ? - transformation zone component absent ? GENERAL CATEGORIZATION ? Negative for Intraepithelial Lesion or Malignancy ? Document reviewed and electronically signed by: ? Lynan Hemanth, CT(ASCP) ? Report Date: ??01/18/2009 13:25 ? End of Report ? [facility] 01/12/2009 01/13/2009 Elaine Colin MD PATHOLOGY [facility] Organization Address City/State/ZIP Co de Phone Number [facility] [address] [place] [address] * FITTING ROOM OPERATOR US PELVIS TRANSVAGINAL (07/03/2008 11:55 EST) Anatomical Region Laterality Modality Other 07/03/2008 11:5 5 EST Narrative 12/14/2008 10:46 EDT pelvic pain GYNECOLOGICAL ULTRASOUND INDICATION: ??Patient is 53 years old and postmenopausal. She has a family history of ovarian cancer and has right sided pain. FINDINGS: ?? Transvaginal ultrasound is performed. ??Uterus is anteflexed and measures 7.7 cm sagittally, 4.9 cm AP, and 4.7 cm transversely. ??There are no structural abnormalities of the cervix and no free fluid in the cul-de-sac. ??Endometrium is homogenous and thin at 4.9 mm. ??Within the myometrium are multiple hyperechoic regions indicative of adenomyosis. There are two areas where this finding coalesces, which may represent involuting leiomyomata or adenomyomas. ??The first is posterior and intramural and measures 1.7 x 1.4 x 1.2 cm. ??The second is anterior and intramural and measures 1.5 x 1.6 x 1.2 cm. ??The right ovary is normal in size and location and devoid of follicular activity. ??It measures 1.2 x 1.9 x 1.4 cm. The left ovary is similarly quiescent and measures 2.1 x 1.1 x 0.9 cm. IMPRESSION: Evidence for adenomyosis and either intramural myomas or adenomyomas. ??There are no obvious sources for the patient's right lower quadrant pain identified. D: ??07/03/08 T: ??07/03/08 /lex Procedure Note Nikos Thomason MD - 12/14/2008 pelvic pain GYNECOLOGICAL ULTRASOUND INDICATION: Patient is 53 years old and postmenopausal. She has a family history of ovarian cancer and has right sided pain. FINDINGS: Transvaginal ultrasound is performed. Uterus is anteflexed and measures 7.7 cm sagittally, 4.9 cm AP, and 4.7 cm transversely. There are no structural abnormalities of the cervix and no free fluid in the cul-de-sac. Endometrium is homogenous and thin at 4.9 mm. Within the myometrium are multiple hyperechoic regions indicative of adenomyosis. There are two areas where this finding coalesces, which may represent involuting leiomyomata or adenomyomas. The first is posterior and intramural and measures 1.7 x 1.4 x 1.2 cm. The second is anterior and intramural and measures 1.5 x 1.6 x 1.2 cm. The right ovary is normal in size and location and devoid of follicular activity. It measures 1.2 x 1.9 x 1.4 cm. The left ovary is similarly quiescent and measures 2.1 x 1.1 x 0.9 cm. IMPRESSION: Evidence for adenomyosis and either intramural myomas or adenomyomas. There are no obvious sources for the patient's right lower quadrant pain identified. lds Elaine Colin MD IMMoises US FITTING ROOM OPERATOR ORD ERABLES documented in this encounter Visit Diagnoses Not on filedocumented in this encounter
--- OUTSIDE RECORDS SUMMARY | 2024-06-06 00:43 | XMS_ITS | Encounter Summary ---
Author Organization [facility] Address [address] [place] [address] Care Team Providers Care Electrical Supervisor Name Role Phone Saira Marquez MD Primary Care Provider [phone] Encounter Details Date Type Department Care Team (Late st Contact Info) Description 11/15/2017 Results Only [facility] [phone] Jana Dias, [facility] [address] [place] [address] [place] [phone] Social History Tobacco Use Types Packs/Day Years [...] Diagnosis Comments PAP TEST- RESULT ONLY Routine 11/15/2017 0:00 EDT documented in this encounter Results * PAP TEST- RESULT ONLY (11/15/2017 0:00 EDT) Pathology Report: CYTOPATHOLOGY REPORT Reports generated via electronic interface contain original data; however they are lacking the format of the original report. Caution should be taken when reading/interpreti ng unformatted reports. Name: ? EMILE AMBROCIO ? Accession #: ? [id number] ? : ? 1955 (Age: 62) ??F ?Collect Date: ? 11/15/2017 ? Location: ? [facility] ? Receive Date: ? 11/16/2017 ? Provider: JANA DIAS PUBLISHING SYSTEMS ANALYST Copy to: SAIRA MARQUEZ MD ? Final Report SPECIMEN ADEQUACY ? Satisfactory for Evaluation - transformation zone component present GENERAL CATEGORIZATION ? Negative for Intraepithelial Lesion or Malignancy ?? Last Menstrual Period: 2010 Specimen/Source: ??Pap Test, Cervix, ThinPrep Imaging System with manual evaluation Document reviewed and electronically signed by: ? Aicha Cunha, CT(ASCP) ? Report ??Date: 11/23/2017 14:06 HPV with Pap Test ? Date Ordered: ? 11/23/2017 ? Status: ?? Signed Out ?Date Complete: ? 11/26/2017 ? By: ??System Interface ? Date Reported: ? 11/26/2017 ? Interpretation RESULT: Negative for HPV. No E6 or E7 mRNA is detected from HPV types 16,18,31,33,35, 39,45,51,52,56,58, 59,66, and 68 by voice data communications engineer mediated amplification. Comments Document reviewed and electronically signed by: ? System Interface ? Report date: 11/26/2017 By the signature above, the attending physician certifies that he/she has personally conducted a gross and/or microscopic examination of the described specimens and rendered or confirmed the above diagnosis. End of Report [facility] 11/15/2017 11/16/2017 Jana Dias PUBLISHING SYSTEMS ANALYST PATHOLOGY ORDERABLES [facility] [address] [place] [address] documented in this encounter Visit Diagnoses Not on filedocumented in this encounter Care Teams Electrical Supervisor Relationship Specialty Start Date End Date Saira Marquez MD [address] [place] [address] PCP - General 01/11/09 documented as of this encounter
--- OUTSIDE RECORDS SUMMARY | 2024-06-06 00:43 | XMS_ITS | Encounter Summary ---
Author Organization [facility] Address [address] [place] [address] Care Team Providers Care Library Science Instructor Name Role Phone Glynn Marquez MD Primary Care Provider Encounter Details Date Type Department Care Team (Late st Contact Info) Description 01/01/2006 Results Only [facility] - Maple conversion [address] [place] [address] Dora Fox, HOSPICE ART THERAPIST Social History Tobacco Use Types Packs/Day Years Used Date Smoking Tobacco: Never Assessed Sex and Gender Information Value Date Recorded Sex Assigned at Not on file Gender Identity Not on file Sexual Orientation Not on file documented as of this encounter Plan of Treatment Not on file documented as of this encounter Procedures Procedure Name Priority Date/Time Associated Diagnosis Comments CYTOPATHOLOGY Routine 01/01/2006 0:00 EDT documented in this encounter Results * CYTOPATHOLOGY (01/01/2006 0:00 EDT) Pathology Report: CYTOPATHOLOGY REPORT Reports generated via electronic interface contain original data; however they are lacking the format of the original report. Caution should be taken when reading/interpreti ng unformatted reports. Name: ? EMILE AMBROCIO ? Accession #: ? [id number] : ? 1955 (Age: 50) ??F ?Collect Date: ? 01/01/2006 Location: ? [facility] ? Receive Date: ? 01/03/2006 Provider: ?DORA FOX HOSPICE ART THERAPIST Copy to: ? Specimen/Source: ?ThinPrep Pap Test, Cervix/Endocervix, processed on [employer] ThinPrep Imaging System, with manual evaluation Last Menstrual Period: ? 12/21/05 Other: ? Additional clinical information: Previous paps WNL HPVA - HPV testing requested if ASC-US on the current ThinPrep Pap test. ? SPECIMEN ADEQUACY ? Satisfactory for Evaluation - transformation zone component absent GENERAL CATEGORIZATION ? Negative for Intraepithelial Lesion or Malignancy ? Document reviewed and electronically signed by: ? HUSSAIN Dixon(ASCP) ? Report Date: ??01/04/2006 14:10 End of Report [facility] 01/01/2006 01/03/2006 Dora Fox HOSPICE ART THERAPIST PATHOLOGY ORDER ARNEL Performing Organization Address City/State/[facility] Co de Phone Number [facility] [address] [place] [address] documented in this encounter Visit Diagnoses Not on filedocumented in this encounter Care Teams Library Science Instructor Relationship Specialty Start Date End Date Glynn Marquez MD [address] [place] [address] PCP - General 01/11/09 documented as of this encounter
--- OUTSIDE RECORDS SUMMARY | 2024-06-06 00:43 | XMS_ITS | Referral Summary ---
Author Organization [facility] Address [address] [place] [address] Care Team Providers Care Shipper Receiver Name Role Phone Glynn Marquez MD Primary Care Provider Allergies No known active allergies Medications Medication Sig Dispensed Refills Start Date End Date Status aspirin 325 mg tablet Take 325 mg by mouth once a week. Active Active Problems Problem Noted Date Diagnosed Date Family history of breast cancer 08/26/2010 Family history of ovarian cancer 08/26/2010 Social History Tobacco Use Types Packs/Day Years Used Date Smoking Tobacco: Never Assessed Sex and Gender Information Value Date Recorded Sex Assigned at Not on file Gender Identity Not on file Sexual Orientation Not on file Last Filed Vital Signs Vital Sign Reading Time Taken Comments Blood Pressure 110/60 08/15/2011 0942 EST Pulse - - Temperature - - Respiratory Rate - - Oxygen Saturation - - Inhaled Oxygen Concentration - - Weight 72.6 kg (160 lb) 08/15/2011 0935 EST Height 162.6 cm (5' 4) 08/23/2010 1328 EST Body Mass Index 27.46 08/23/2010 1328 EST Plan of Treatment Not on file Care Teams Shipper Receiver Relationship Specialty Start Date End Date Glynn Marquez MD [address] [place] [address] PCP - General 01/11/09
--- OUTSIDE RECORDS SUMMARY | 2024-06-06 00:43 | XMS_ITS | Encounter Summary ---
Author Organization [facility] Address [address] [place] [address] Care Team Providers Care Pharmaceutical Assistant Name Role Phone Glynn Marquez MD Primary Care Provider Encounter Details Date Type Department Care Team (Late st Contact Info) Description 02/28/2011 Results Only Imaging [facility] OBGYN Services - [facility] [address] [place], [place] [address] Yg Colin MD [address] [place] [address] [phone] Social History Tobacco Use Types Packs/Day Years Used Date Smoking Tobacco: Never Assessed Sex and Gender Information Value Date Recorded Sex Assigned at Not on file Gender Identity Not on file Sexual Orientation Not on file documented as of this encounter Plan of Treatment Not on file documented as of this encounter Procedures Procedure Name Priority Date/Time Associated Diagnosis Comments MA MAMMO SCREENING DIGITAL 04/26/2011 10:36 EDT documented in this encounter Results * MA MAMMO SCREENING DIGITAL (04/26/2011 10:36 EDT) Anatomical Region Laterality Modality Other 04/26/2011 10:3 6 EDT 04/26/2011 16:55 EDT Narrative 04/26/2011 16:55 EDT Comparison is made to images from 03/17/2010 (bilateral) and images from 03/16/2009 (bilateral) and outside images from 02/18/2007 (bilateral) and outside images from 02/12/2006 (bilateral). Bilateral Breast Findings: (CAD used to interpret routine digital) The breasts are almost entirely fat (less than 25% fibroglandular). No significant masses, calcifications or other abnormalities are seen. IMPRESSION: BILATERAL BREASTS: Negative, no evidence of malignancy. Normal interval follow-up is recommended in 12 months. OVERALL ASSESSMENT - CATEGORY 1 - NEGATIVE END OF IMPRESSION The patient will be notified of her/his breast imaging results via a lay letter from Radiology. Radiology will contact the patient directly regarding any findings which require additional imaging (Category 0) at this time. Procedure Note 04/26/2011 Comparison is made to images from 03/17/2010 (bilateral) and images from 03/16/2009 (bilateral) and outside images from 02/18/2007 (bilateral) and outside images from 02/12/2006 (bilateral). Bilateral Breast Findings: (CAD used to interpret routine digital) The breasts are almost entirely fat (less than 25% fibroglandular). No significant masses, calcifications or other abnormalities are seen. IMPRESSION: BILATERAL BREASTS: Negative, no evidence of malignancy. Normal interval follow-up is recommended in 12 months. OVERALL ASSESSMENT - CATEGORY 1 - NEGATIVE END OF IMPRESSION The patient will be notified of her/his breast imaging results via a lay letter from Radiology. Radiology will contact the patient directly regarding any findings which require additional imaging (Category 0) at this time. Yg Colin MD IMG MAMMOGRAPH Y ORDERABLES documented in this encounter Visit Diagnoses Not on filedocumented in this encounter Care Teams Pharmaceutical Assistant Relationship Specialty Start Date End Date Glynn Marquez MD [address] [place] [id number] PCP - General 01/11/09 documented as of this encounter
--- OUTSIDE RECORDS SUMMARY | 2024-06-06 00:43 | XMS_ITS | Encounter Summary ---
Author Organization [facility] Address [address] [place] [address] Care Team Providers Care Aquatics Group Fitness Instructor Name Role Phone Glynn Marquez MD Primary Care Provider [phone] Encounter Details Date Type Department Care Team (Latest Contact Info) Description 03/17/2010 10:43 EDT - 03/17/2010 23:59 EDT Hospital Encounter [address] [address] Glynn Marquez MD [address] [place] [address] Discharge Disposition: Home or Self Care Social History Tobacco Use Types Packs/Day Years Used Date Smoking Tobacco: Never Assessed Sex and Gender Information Value Date Recorded Sex Assigned at Not on file Gender Identity Not on file Sexual Orientation Not on file documented as of this encounter Discharge Disposition Disposition Code Departure Means Destination Home or Self Skilled Nursing documented in this encounter Plan of Treatment Not on file documented as of this encounter Visit Diagnoses Not on filedocumented in this encounter Care Teams Aquatics Group Fitness Instructor Relationship Specialty Start Date End Date Glynn Marquez MD [address] [place], [place] [address] PCP - General 01/11/09 documented as of this encounter
--- OUTSIDE RECORDS SUMMARY | 2024-06-06 00:43 | XMS_ITS | Encounter Summary ---
Author Organization [facility] Address [address] [place] [address] Care Team Providers Care Raw Juice Weigher Name Role Phone Glynn Marquez MD Primary Care Provider Encounter Details Date Type Department Care Team (Late st Contact Info) Description 03/17/2010 Results Only [facility] [phone] Glynn Marquez MD [address] [place], [place] [id number] Social History Tobacco Use Types Packs/Day Years [...] Associated Diagnosis Comments MA MAMMO SCREENING DIGITAL 03/17/2010 11:24 EDT documented in this encounter Results * MA MAMMO SCREENING DIGITAL (03/17/2010 11:24 EDT) Anatomical Region Laterality Modality Other 03/17/2010 11:2 4 EDT 03/17/2010 12:01 EDT Narrative 03/17/2010 12:01 EDT Comparison is made to films from 03/16/2009 (bilateral) and outside films from 02/18/2007 (bilateral) and outside films from 02/12/2006 (bilateral). Bilateral Breast Findings: (CAD used to interpret routine digital): The breasts are almost entirely fat. No significant masses, calcifications or other abnormalities are seen. IMPRESSION: BILATERAL BREASTS - CATEGORY 1, NEGATIVE Negative, no evidence of malignancy. Normal interval follow-up is recommended in 12 months. OVERALL ASSESSMENT - NEGATIVE END OF IMPRESSION The patient will be notified of her/his breast imaging results via a lay letter from Radiology. ??Radiology will contact the patient directly regarding any findings which require additional imaging (Category 0) at this time. Procedure Note 03/17/2010 Comparison is made to films from 03/16/2009 (bilateral) and outside films from 02/18/2007 (bilateral) and outside films from 02/12/2006 (bilateral). Bilateral Breast Findings: (CAD used to interpret routine digital): The breasts are almost entirely fat. No significant masses, calcifications or other abnormalities are seen. IMPRESSION: BILATERAL BREASTS - CATEGORY 1, NEGATIVE Negative, no evidence of malignancy. Normal interval follow-up is recommended in 12 months. OVERALL ASSESSMENT - NEGATIVE END OF IMPRESSION The patient will be notified of her/his breast imaging results via a lay letter from Radiology. Radiology will contact the patient directly regarding any findings which require additional imaging (Category 0) at this time. Glynn Marquez MD IMG MAMMOGRAPHY LUC ARIAS documented in this encounter Visit Diagnoses Not on filedocumented in this encounter Care Teams Raw Juice Weigher Relationship Specialty Start Date End Date Glynn Marquez MD [address] [place] [address] PCP - General 01/11/09 documented as of this encounter
--- OUTSIDE RECORDS SUMMARY | 2024-06-06 00:43 | XMS_ITS | Encounter Summary ---
Author Organization [facility] Address [address] [place] [address] Care Team Providers Care Route Relief Driver Name Role Phone Glynn Marquez MD Primary Care Provider Encounter Details Date Type Department Care Team (Latest Contact Info) Description 03/16/2009 11:14 EDT - 03/16/2009 23:59 EDT Hospital Encounter [address] [address] Glynn Marquez MD [address] [place] [address] Discharge Disposition: Auto Discharge Social History Tobacco Use Types Packs/Day Years Used Date Smoking Tobacco: Never Assessed Sex and Gender Information Value Date Recorded Sex Assigned at Not on file Gender Identity Not on file Sexual Orientation Not on file documented as of this encounter Discharge Disposition Disposition Code Departure Means Destination Auto Discharge Home documented in this encounter Plan of Treatment Not on file documented as of this encounter Visit Diagnoses Not on filedocumented in this encounter Care Teams Route Relief Driver Relationship Specialty Start Date End Date Glynn Marquez MD [address] [place], [place] [address] PCP - General 01/11/09 documented as of this encounter
--- OUTSIDE RECORDS SUMMARY | 2024-06-06 00:43 | XMS_ITS | Encounter Summary ---
Author Organization [facility] Address [address] [place] [address] Care Team Providers Care Technical Producer Name Role Phone Glynn Marquez MD Primary Care Provider Encounter Details Date Type Department Care Team (Late st Contact Info) Description 09/10/2014 Results Only [facility] Laboratory Services - [facility] ([facility] [address] [place], [place] [address] Jana Dias, [facility] [address] [place] [phone] Social History Tobacco Use Types Packs/Day Years [...] Diagnosis Comments PAP TEST- RESULT ONLY Routine 09/10/2014 0:00 EST documented in this encounter Results * PAP TEST- RESULT ONLY (09/10/2014 0:00 EST) Pathology Report: CYTOPATHOLOGY REPORT Reports generated via electronic interface contain original data; however they are lacking the format of the original report. Caution should be taken when reading/interpreti ng unformatted reports. Name: ? EMILE AMBROCIO ? Accession #: ? [id number] ? : ? 1955 (Age: 59) ??F ?Collect Date: ? 09/10/2014 ? Location: ? [facility] ? Receive Date: ? 09/11/2014 ? Provider: JANA DIAS ORTHODONTIC TREATMENT COORDINATOR Copy to: ? Final Report SPECIMEN ADEQUACY ? Satisfactory for Evaluation - transformation zone component present GENERAL CATEGORIZATION ? Negative for Intraepithelial Lesion or Malignancy ?? Last Menstrual Period: 2010 Specimen/Source: ??Pap Test, Cervix/Endocervix, ThinPrep Imaging System with manual evaluation Document reviewed and electronically signed by: ? Carrie Saxena, HUSSAIN(ASCP) ? Report ??Date: 09/20/2014 10:56 HPV with Pap Test ? Date Ordered: ? 09/20/2014 ? Status: ?? Signed Out ?Date Complete: ? 09/23/2014 ? By: ??System Interface ? Date Reported: ? 09/23/2014 ? Interpretation RESULT: Negative for HPV. No E6 or E7 mRNA is detected from HPV types 16,18,31,33,35, 39,45,51,52,56,58, 59,66, and 68 by client associate mediated amplification. Comments Document reviewed and electronically signed by: ? System Interface ? Report date: 09/23/2014 By the signature above, the attending physician certifies that he/she has personally conducted a gross and/or microscopic examination of the described specimens and rendered or confirmed the above diagnosis. End of Report [facility] 09/10/2014 09/11/2014 Jana Dias ORTHODONTIC TREATMENT COORDINATOR PATHOLOGY ORDERABLES [facility] [address] [place] [address] documented in this encounter Visit Diagnoses Not on filedocumented in this encounter Care Teams Technical Producer Relationship Specialty Start Date End Date Glynn Marquez MD [address] [place] [address] PCP - General 01/11/09 documented as of this encounter
--- OUTSIDE RECORDS SUMMARY | 2024-06-06 00:43 | XMS_ITS | Encounter Summary ---
Author Organization [facility] Address [address] [place] [address] Care Team Providers Care Tool And Die Designer Name Role Phone Glynn Marquez MD Primary Care Provider [phone] Encounter Details Date Type Department Care Team (Late st Contact Info) Description 09/05/2011 Orders Only [facility] OBGYN Services - [facility] [address] [place], [place] [id number] Brittani Carmona RN Family history of breast cancer; Family history of ovarian cancer Social History Tobacco Use Types Packs/Day Years Used Date Smoking Tobacco: Never Assessed Sex and Gender Information Value Date Recorded Sex Assigned at Not on file Gender Identity Not on file Sexual Orientation Not on file documented as of this encounter Plan of Treatment Not on file documented as of this encounter Visit Diagnoses Diagnosis Family history of breast cancer Family history of malignant neoplasm of breast Family history of ovarian cancer Family history of malignant neoplasm of ovary documented in this encounter Care Teams Tool And Die Designer Relationship Specialty Start Date End Date Glynn Marquez MD [address] [place] [address] PCP - General 01/11/09 documented as of this encounter
--- OUTSIDE RECORDS SUMMARY | 2024-06-06 00:43 | XMS_ITS | Encounter Summary ---
Author Organization [facility] Address [address] [place] [address] Care Team Providers Care Cell Inspector Name Role Phone Glynn Marquez MD Primary Care Provider [phone] Reason for Visit * Reason Onset Date Comments Labs Only 08/10/2010 external Ca125 r esult Encounter Details Date Type Department Care Team (Late st Contact Info) Description 08/10/2010 Orders Only [facility] OBGYN Services - [address] [phone] Brittani Carmona, timing machine operator history of ovarian cancer (Primary Dx) Social History Tobacco Use Types Packs/Day Years Used Date Smoking Tobacco: Never Assessed Sex and Gender Information Value Date Recorded Sex Assigned at Not on file Gender Identity Not on file Sexual Orientation Not on file documented as of this encounter Plan of Treatment Not on file documented as of this encounter Procedures Procedure Name Priority Date/Time Associated Diagnosis Comments ZZCA 125 Routine 06/17/2010 13:30 EST documented in this encounter Results * CA 125 (06/17/2010 13:30 EST) CA 125, External 17 0 - 35 [facility] Blood specimen (specimen) Historical Provider CHEMISTRY & BLOOD GAS ORDERABLES [facility] documented in this encounter Visit Diagnoses Diagnosis Family history of ovarian cancer- Primary Family history of malignant neoplasm of ovary documented in this encounter Care Teams Cell Inspector Relationship Specialty Start Date End Date Glynn Marquez MD [address] [place] [address] PCP - General 01/11/09 documented as of this encounter
--- OUTSIDE RECORDS SUMMARY | 2024-06-06 00:43 | XMS_ITS | Encounter Summary ---
Author Organization [facility] Address [address] [place] [address] Care Team Providers Care Refining Equipment Operator Name Role Phone Glynn Marquez MD Primary Care Provider [phone] Reason for Visit * Reason Comments Follow-up family history of ov inder and breast carcinoma Encounter Details Date Type Department Care Team (Late st Contact Info) Description 01/19/2010 13:30 EDT Office Visit [facility] OBGYN Services - [facility] [address] [place], [place] [address] Yg Colin MD [address] [place] [phone] Nevin Malcolm MD [address] [place] [phone] Family history of ovarian cancer (Primary Dx) Social History Tobacco Use Types Packs/Day Years Used Date Smoking Tobacco: Never Assessed Sex and Gender Information Value Date Recorded Sex Assigned at Not on file Gender Identity Not on file Sexual Orientation Not on file documented as of this encounter Progress Notes * Yg Colin MD - 01/19/2010 1500 EDT Ms Karlene Ambrocio is a 54 y.o. woman with a family history of ovarian carcinoma who is undergoing ovarian cancer screening. She presents today for a follow up evaluation and discussion of U/S results. Overall she is doing well. She denies any vaginal bleeding, abdominal pain, changes in bowel or urinary habits/N/V/CP/SOB or other complaints. Her U/S evaluation today was normal. We recommended that she has a CA-125 drawn and I will plan to see her in 6 months for an examination and CA-125. Approximately 10 minutes were spent with the patient g100% in face to face coordination of care anddiscussion of results. documented in this encounter Plan of Treatment Not on file documented as of this encounter Visit Diagnoses Diagnosis Family history of ovarian cancer- Primary Family history of malignant neoplasm of ovary documented in this encounter Care Teams Refining Equipment Operator Relationship Specialty Start Date End Date Glynn Marquez MD [address] [place] [address] PCP - General 01/11/09 documented as of this encounter
--- OUTSIDE RECORDS SUMMARY | 2024-06-06 00:43 | XMS_ITS | Clinical Summary ---
Author Organization [facility] Address [address] [place] [address] Care Team Providers Care Raised Printer Name Role Phone Glynn Marquez MD Primary [...] on file Sexual Orientation Not on file Obstetrics History Last Filed Vital Signs Vital Sign Reading Time Taken Comments Blood Pressure 110/60 08/15/2011 0942 EST Pulse - - Temperature - - Respiratory Rate - - Oxygen Saturation - - Inhaled Oxygen Concentration - - Weight 72.6 kg (160 lb) 08/15/2011 0935 EST Height 162.6 cm (5' 4) 08/23/2010 1328 EST Body Mass Index 27.46 08/23/2010 1328 EST Plan of Treatment Health Maintenance Due Date Last Done Comments Hepatitis C Screen 1955 RSV Immunization ( o r 60+ Years) (1 - 1-dose 60+ series) 2015 Fall Risk Screening 2020 COVID-19 Vaccine (2022- season) 2023 Care Teams Raised Printer Relationship Specialty Start Date End Date Glynn Marquez MD [address] [place] [address] PCP - General 01/11/09
--- OUTSIDE RECORDS SUMMARY | 2024-06-06 00:43 | XMS_ITS | Encounter Summary ---
Author Organization [facility] Address [address] [place] [address] Care Team Providers Care Supervisor Assembly And Packing Name Role Phone Glynn Marquez MD Primary Care Provider [phone] Encounter Details Date Type Department Care Team (Late st Contact Info) Description 10/13/2002 Results Only [facility] - [facility] [address] [place] [address] Marya, October, [facility] [address] [place] [phone] Social History Tobacco Use Types Packs/Day Years Used Date Smoking Tobacco: Never Assessed Sex and Gender Information Value Date Recorded Sex Assigned at Not on file Gender Identity Not on file Sexual Orientation Not on file documented as of this encounter Plan of Treatment Not on file documented as of this encounter Procedures Procedure Name Priority Date/Time Associated Diagnosis Comments CYTOPATHOLOGY Routine 10/13/2002 0:00 EST documented in this encounter Results * CYTOPATHOLOGY (10/13/2002 0:00 EST) Pathology Report: CYTOPATHOLOGY REPORT Reports generated via electronic interface contain original data; however they are lacking the format of the original report. Caution should be taken when reading/interpreti ng unformatted reports. Name: ? EMILE MILLER ? Accession #: ? [id number] : ? 1955 (Age: 47) ??F ?Collect Date: ? 10/13/2002 Location: ? [facility] ? Receive Date: ? 10/15/2002 Provider: ?LISSETTE RODRIGUEZ CNM Copy to: ? Specimen/Source: ?ThinPrep Pap Test, Cervix/Endocervix Last Menstrual Period: ? 10/05/02 Other: ? HPVA - HPV testing requested if ASC-US on the current ThinPrep Pap test. ? SPECIMEN ADEQUACY ? Satisfactory for Evaluation - transformation zone component absent GENERAL CATEGORIZATION ? Negative for Intraepithelial Lesion or Malignancy ? Document reviewed and electronically signed by: ? ADRIANA Blanton(ASCP) ? Report Date: ??10/17/2002 08:34 End of Report [facility] 10/13/2002 10/15/2002 Lissette Rodriguez CNM PATHOLOGY ORDERABLES Performing Organization Address City/State/[facility] Co de Phone Number [facility] [address] [place] [address] documented in this encounter Visit Diagnoses Not on filedocumented in this encounter Care Teams Supervisor Assembly And Packing Relationship Specialty Start Date End Date Glynn Marquez MD [address] [place] [address] PCP - General 01/11/09 documented as of this encounter
--- OUTSIDE RECORDS SUMMARY | 2024-06-06 00:43 | XMS_ITS | Encounter Summary ---
Author Organization [facility] Address [address] [place] [address] Care Team Providers Care Bag Machine Tender Name Role Phone Glynn Marquez MD Primary Care Provider Encounter Details Date Type Department Care Team (Late st Contact Info) Description 08/10/2009 Abstract [facility] OBN Services - [facility] [address] [place] [address] Glynn Marquez MD [address] [place] [address] Social History Tobacco Use Types Packs/Day Years Used Date Smoking Tobacco: Never Assessed Sex and Gender Information Value Date Recorded Sex Assigned at Not on file Gender Identity Not on file Sexual Orientation Not on file documented as of this encounter Plan of Treatment Not on file documented as of this encounter Visit Diagnoses Not on filedocumented in this encounter Care Teams Bag Machine Tender Relationship Specialty Start Date End Date Glynn Marquez MD [address] [place] [address] PCP - General 01/11/09 documented as of this encounter
--- OUTSIDE RECORDS SUMMARY | 2024-06-06 00:43 | XMS_ITS | Encounter Summary ---
Author Organization [facility] Address [address] [place] [address] Care Team Providers Care Presser Hand Name Role Phone Glynn Marquez MD Primary Care Provider [phone] Encounter Details Date Type Department Care Team (Late st Contact Info) Description 04/16/2009 Orders Only [facility] OBGYN Services - [facility] [address] [place], [place] [address] Yg Colin MD [address] [place] [address] [phone] Social History Tobacco Use Types [...] on filedocumented in this encounter Care Teams Presser Hand Relationship Specialty Start Date End Date Glynn Marquez MD [address] [place] [id number] PCP - General 01/11/09 documented as of this encounter
--- OUTSIDE RECORDS SUMMARY | 2024-06-06 00:43 | XMS_ITS | Encounter Summary ---
Author Organization [facility] Address [address] [place] [address] Care Team Providers Care Assistant Loan Processor Name Role Phone Glynn Marquez MD Primary Care Provider [phone] Encounter Details Date Type Department Care Team (Late st Contact Info) Description 03/16/2009 Orders Only [facility] [phone] Glynn Marquez MD [address] [place], [place] [phone] Social History Tobacco Use Types Packs/Day Years [...] Associated Diagnosis Comments MA MAMMO SCREENING DIGITAL 03/16/2009 11:38 EDT documented in this encounter Results * MA MAMMO SCREENING DIGITAL (03/16/2009 11:38 EDT) Anatomical Region Laterality Modality Other 03/16/2009 11:3 8 EDT 03/19/2009 16:00 EDT Narrative 03/19/2009 16:00 EDT Comparison is made to outside films from 02/18/2007 (bilateral) and outside films from 02/12/2006 (bilateral). Bilateral Breast Findings: (CAD used to interpret routine digital): There are scattered fibroglandular densities. No significant masses, calcifications or other abnormalities [...] (Category 0) at this time. Procedure Note 03/19/2009 Comparison is made to outside films from 02/18/2007 (bilateral) and outside films from 02/12/2006 (bilateral). Bilateral Breast Findings: (CAD used to interpret routine digital): There are scattered fibroglandular densities. No significant masses, calcifications or other abnormalities [...] on filedocumented in this encounter Care Teams Assistant Loan Processor Relationship Specialty Start Date End Date Glynn Marquez MD [address] [place] [address] PCP - General 01/11/09 documented as of this encounter
--- OUTSIDE RECORDS SUMMARY | 2024-06-06 00:43 | XMS_ITS | Encounter Summary ---
Author Organization [facility] Address [address] [place] [address] Care Team Providers Care Supply Chain Coordinator Name Role Phone Glynn Marquez MD Primary Care Provider Reason for Referral * (Routine) - Closed Specialty Diagnoses / Procedures Referred By Contac t Referred To Contact Diagnoses Family history of ovarian cancer Procedures CA 125 [facility] [employer] [facility] [address] [place] [id number] Referral ID Status Reason Start Date Expiration Date Visits Re quested Visits Authorized [id number] Closed 08/15/2011 1 1 Reason for Visit * Reason Comments Follow-up Family hx breast and ovarian CA. Encounter Details Date Type Department Care Team (Late st Contact Info) Description 08/15/2011 9:15 EST Office Visit [facility] O[facility] - Main [place] [address] [place] [address] gY Colin MD [address] [place] [address] [place] [id number] Family history of ovarian cancer (Primary Dx); Menopausal hot flushes Social History Tobacco Use Types Packs/Day Years [...] kg (160 lb) 08/15/2011 0935 EST Height - - Body Mass Index 27.46 08/23/2010 1328 EST documented in this encounter Progress Notes * Yg Colin MD - 08/15/2011 1001 EST Subjective: Patient ID: Karlene Ambrocio is an 56 y.o. female. Chief Complaint Patient presents with ??? Follow-up Family hx breast and ovarian CA. HPI Comments: Ms Karlene Ambrocio is a [...] breath, lower extremity edema or other complaints. She is experiencing hot flushes and irritability since entering menopause. Does not take any medication for the sxs. Patient Active Problem List Diagnoses ??? Family history of breast cancer ??? Family history of ovarian cancer No past medical history on file. No past surgical history on file. No family history on file. Social History Substance Use Topics ??? Smoking status: Not on file ??? Smokeless tobacco: Not on file ??? Alcohol Use: Not on file No current outpatient prescriptions on file prior to visit. No Known Allergies Review of Systems Constitutional: Negative. Negative for fever, chills, weight loss and malaise/fatigue. Hot flushes HENT: Negative. Eyes: Negative. Respiratory: Negative. Cardiovascular: Negative. Negative for chest pain. Gastrointestinal: Negative. Negative for nausea, vomiting, abdominal pain, diarrhea, constipation and blood in stool. Genitourinary: Negative. Musculoskeletal: Negative. Skin: Negative. Neurological: Negative. Endo/Heme/Allergies: Negative. Psychiatric/Behavioral: Negative. All other systems reviewed and are negative. - See HPI Objective: BP 110/60 Wt 72.576 kg (160 lb) LMP 02/12/2011 Physical Exam Constitutional: She is oriented to [...] She exhibits no distension and no mass. There is no tenderness. Genitourinary: Vagina normal and uterus normal. [...] evaluation there is no evidence of clinical disease. We will notify Ms. Ambrocio of her test results. She will have an ultrasound and CA-125 in 6 months and I will see her back for a clinical examination in one year. I have recommended that she try some Tylenol prior to bedtime to see if we can improve her menopausal sxs. I would not recommend HRT in her case. If the tylenol is not helpful we may consider effexor. We will discuss at the next visit if she has not had any improvement of her sxs. Thank you for letting me participate in Ms. Ambrocio's care. If you have any questions please feel free to call or page me directly. Karlene was seen today for follow-up. Diagnoses and associated orders for this visit: Family history of ovarian cancer - CA 125; Future - CA 125; Future Other Orders - aspirin 325 mg tablet; Take 325 mg by mouth once a week. documented in this encounter Plan of Treatment Not on file documented as of this encounter Procedures Procedure Name Priority Date/Time Associated Diagnosis Comments ZZCA 125 Routine 09/01/2011 Family history of ovarian cancer documented in this encounter Results * CA 125 (09/01/2011) CA 125, External <6 0 - 35 [facility] Blood specimen (specimen) Yg Colin MD CHEMISTRY & BL OOD GAS ORDERABLES [facility] documented in this encounter Visit Diagnoses Diagnosis Family history of ovarian cancer- Primary Family history of malignant neoplasm of ovary Menopausal hot flushes Symptomatic menopausal or female climacteric states documented in this encounter Historical Medications * This list may reflect changes made after this encounter. Medication Sig Dispensed Refills Start Date End Date aspirin 325 mg tablet Take 325 mg by mouth once a week. added in this encounter Care Teams Supply Chain Coordinator Relationship Specialty Start Date End Date Glynn Marquez MD [address] [place] [address] PCP - General 01/11/09 documented as of this encounter
--- OUTSIDE RECORDS SUMMARY | 2024-06-06 00:43 | XMS_ITS | Encounter Summary ---
Author Organization [facility] Address [address] [place] [address] Care Team Providers Care Auto Driver Name Role Phone Glynn Marquez MD Primary Care Provider Encounter Details Date Type Department Care Team (Latest Contact Info) Description 05/03/2012 10:04 EDT - 05/03/2012 23:59 EDT Hospital Encounter [address] [address] Glynn Marquez MD [address] [place] [id number] Discharge Disposition: Home or Self Care Social History Tobacco Use Types Packs/Day Years Used Date Smoking Tobacco: Never Assessed Sex and Gender Information Value Date Recorded Sex Assigned at Not on file Gender Identity Not on file Sexual Orientation Not on file documented as of this encounter Medications at Time of Discharge Medication Sig Dispensed Refills Start Date End Date aspirin 325 mg tablet Take 325 mg by mouth once a week. documented as of this encounter Discharge Disposition Disposition Code Departure Means Destination Home or Self [facility]dc documented in this encounter Plan of Treatment Not on file documented as of this encounter Visit Diagnoses Not on filedocumented in this encounter Care Teams Auto Driver Relationship Specialty Start Date End Date Glynn Marquez MD [address] [place] [address] PCP - General 01/11/09 documented as of this encounter
--- OUTSIDE RECORDS SUMMARY | 2024-06-06 00:43 | XMS_ITS | Continuity of Care Document ---
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 1???2 weeks to heal from a muscle strain. Full healing normally takes 5???6 weeks. What are the causes? This condition is caused when a sudden force is placed on a muscle and stretches it too far. This can happen with a fall, while lifting, or during sports. What increases the risk? You are more likely to develop a muscle strain if you are an athlete or you do a lot of physical activity. What are the signs or symptoms? Pain. ? Tenderness. ? Bruising. ? Swelling. ? Trouble using the muscle. How is this treated? This condition is first treated with CHRISTIAN therapy. This involves: ? Protecting your muscle from being injured again. ? Resting your injured muscle. ? Icing your injured muscle. ? Putting pressure (compression) on your injured muscle. This may be done with a splint or elastic bandage. ? Raising (elevating) your injured muscle. Your doctor may also recommend medicine for pain. Follow these instructions at home: If you have a splint that can be taken off: ? Wear the splint as told by your doctor. Take it off only as told by your doctor. ? Check the skin around the splint every day. Tell your doctor if you see problems. ? Loosen the splint if your fingers or toes: ? Tingle. ? Become numb. ? Turn cold and blue. ? Keep the splint clean. ? If the splint is not waterproof: ? Do not let it get wet. ? Cover it with a watertight covering when you take a bath or a shower. Managing pain, stiffness, and swelling ? If told, put ice on your injured area. To do this: ? If you have a removable splint, take it off as told by your doctor. ? Put ice in a plastic bag. ? Place a towel between your skin and the bag. ? Leave the ice on for 20 minutes, 2???3 times a day. ? Take off the ice if your skin turns bright red. This is very important. If you cannot feel pain, heat, or cold, you have a greater risk of damage to the area. ? Move your fingers or toes often. ? Raise the injured area above the level of your heart while you are sitting or lying down. ? Wear an elastic bandage as told by your doctor. Make sure it is not too tight. General instructions ? Take uidf-pds-fdldtna and prescription medicines only as told by your doctor. This may include: ? Medicines for pain and swelling that are taken by mouth or put on the skin. ? Medicines to help relax your muscles. ? Limit your activity. Rest your injured muscle as told by your doctor. Your doctor may say that gentle movements are okay. ? If physical therapy was prescribed, do exercises as told by your doctor. ? Do not put pressure on any part of the splint until it is fully hardened. This may take many hours. ? Do not smoke or use any products that contain nicotine or tobacco. If you need help quitting, ask your doctor. ? Ask your doctor when it is safe to drive if you have a splint. ? Keep all follow-up visits. How is this prevented? Warm up before you exercise. This helps to prevent more muscle strains. Contact a doctor if: ? You have more pain or swelling in the injured area. Get help right away if: ? You have any of these problems in your injured area: ? Numbness. ? Tingling. ? Less strength than normal. Summary ? A muscle strain is an injury that happens when a muscle is stretched beyond normal length. ? This condition is first treated with CHRISTIAN therapy. This includes protecting, resting, icing, adding pressure, and raising your injury. ? Limit your activity. Rest your injured muscle as told by your doctor. Your doctor may say that gentle movements are okay. ? Warm up before you exercise. This helps to prevent more muscle strains. This information is not intended to replace advice given to you by your health care provider. Make sure you discuss any questions you have with your health care provider. Document Revised: 10/03/2021 Document Reviewed: 10/03/2021 Elsevier Patient Education ?? 2022 [employer] Patient/Embossing Machine Operator Signature Patient Name:ANGELA EMILE A I have received this information and my questions have been answered. Patient/Embossing Machine Operator Name: Patient/Embossing Machine Operator Signature: Relationship to Patient: Witness Name/Signature: Date: Electronically Signed on: 01/10/2024 15:14 EDTSigned by:WALDEMAR Discharge summary * Cullen Cross: PERFORM Event Display: Discharge Note Authored Date: * Cullen Cross: PERFORM Event Display: Discharge Note Authored Date: Diagnosis: 1. Strain of right shoulder Comment: Diagnosis: 2. Shoulder bursitis Comment: Diagnosis: Shoulder pain-swelling Comment: Electronically Signed on 01/10/2024 16:38 EDT [facility] Cross Patient Care team information Care Team Personnel Name: Radhames Jasmine MD Position: PowerChart View Only Member Role: Primary Care Physician Address: Address: [place] [address]- Care Team Related Persons Name: CASSIDY CALZADA Address: Home [address], [id number]
--- OUTSIDE RECORDS SUMMARY | 2024-06-06 00:43 | XMS_ITS | Encounter Summary ---
Author Organization [facility] Address [address] [place] [address] Care Team Providers Care Document Analyst Name Role Phone Glynn Marquez MD Primary Care Provider Encounter Details Date Type Department Care Team (Latest Contact Info) Description 08/23/2010 10:01 EST - 08/23/2010 10:02 [facility] Hospital Encounter [facility] - Other [address] [place] [address] Yg Colin MD [address] [place] [address] [phone] Discharge Disposition: Home or Self Care Social History Tobacco Use Types Packs/Day Years Used Date Smoking Tobacco: Never Assessed Sex and Gender Information Value Date Recorded Sex Assigned at Not on file Gender Identity Not on file Sexual Orientation Not on file documented as of this encounter Discharge Disposition Disposition Code Departure Means Destination Home or Self Care documented in this encounter Plan of Treatment Not on file documented as of this encounter Visit Diagnoses Not on filedocumented in this encounter Care Teams Document Analyst Relationship Specialty Start Date End Date Glynn Marquez MD [address] [place] [address] PCP - General 01/11/09 documented as of this encounter
--- OUTSIDE RECORDS SUMMARY | 2024-06-06 00:43 | XMS_ITS | Encounter Summary ---
Author Organization [facility] Address [address] [place] [address] Care Team Providers Care Sociology Professor Name Role Phone Glynn Marquez MD Primary Care Provider Encounter Details Date Type Department Care Team (Late st Contact Info) Description 03/12/2012 Results Only Imaging [facility] [phone] Glynn Marquez MD [address] [place], [place] [id number] Social History Tobacco Use Types Packs/Day Years [...] Associated Diagnosis Comments MA MAMMO SCREENING DIGITAL 05/03/2012 10:32 EDT documented in this encounter Results * MA MAMMO SCREENING DIGITAL (05/03/2012 10:32 EDT) Anatomical Region Laterality Modality Other 05/03/2012 10:3 2 EDT 05/08/2012 11:21 EDT Narrative 05/08/2012 11:21 EDT Comparison has been made to previous images. Bilateral Breast Findings: (Routine digital views with CAD) There are scattered fibroglandular densities (25% - 50% fibroglandular). No significant masses, calcifications or other [...] (Category 0) at this time. Procedure Note 05/08/2012 Comparison has been made to previous images. Bilateral Breast Findings: (Routine digital views with CAD) There are scattered fibroglandular densities (25% - 50% fibroglandular). No significant masses, calcifications or other [...] on filedocumented in this encounter Care Teams Sociology Professor Relationship Specialty Start Date End Date Glynn Marquez MD [address] [place] [address] PCP - General 01/11/09 documented as of this encounter
--- OUTSIDE RECORDS SUMMARY | 2024-06-06 00:43 | XMS_ITS | Encounter Summary ---
Author Organization [facility] Address [address] [place] [address] Care Team Providers Care Skimmer Name Role Phone Glynn Marquez MD Primary Care Provider Encounter Details Date Type Department Care Team (Late st Contact Info) Description 01/08/2007 Results Only [facility] [address] [place] [address] Dora Fox, SENIOR CHEMIST Social History Tobacco Use Types Packs/Day Years Used Date Smoking Tobacco: Never Assessed Sex and Gender Information Value Date Recorded Sex Assigned at Not on file Gender Identity Not on file Sexual Orientation Not on file documented as of this encounter Plan of Treatment Pending Results Name Type Priority Associated Diagnoses Date /Time OUTSIDE CD - MAMMO BREAST Imaging 03/16/2010 1:37 EDT OUTSIDE CD - MAMMO BREAST Imaging 03/16/2010 1:37 EDT documented as of this encounter Procedures Procedure Name Priority Date/Time Associated Diagnosis Comments HPV DETECTION, HIGH RISK TYPES Routine 01/08/2007 15:07 EDT CYTOPATHOLOGY Routine 01/08/2007 0:00 EDT documented in this encounter Results * HUMAN PAPILLOMA VIRUS DNA TEST (01/08/2007 15:07 EDT) Specimen Description Cervix, ThinPrep vial [facility] Result Negative for HPV types 16, 18, 31, 33, 35, 39, 45, 51, 52, 56, 58, 59, and 68. [facility] Report Status Final [id number] [facility] 01/08/2007 15:0 7 EDT 01/16/2007 15:07 EDT Dora Fox APRN MICROBIOLOGY - GENERAL ORDERABLES [facility] [address] [place] [address] * CYTOPATHOLOGY (01/08/2007 0:00 EDT) Pathology Report: CYTOPATHOLOGY REPORT Reports generated via electronic interface contain original data; however they are lacking the format of the original report. Caution should be taken when reading/interpreti ng unformatted reports. Name: ? EMILE AMBROCIO ? Accession #: ? [id number] : ? 1955 (Age: 51) ??F ?Collect Date: ? 01/08/2007 Location: ? [facility] ? Receive Date: ? 01/10/2007 Provider: ?DORA FOX APRN Copy to: ? Specimen/Source: ?ThinPrep Pap Test, Cervix/Endocervix, processed on GIVTED ThinPrep Imaging System, with manual evaluation Last Menstrual Period: ? 12/14/06 Other: ? Additional clinical information: Previous pap wnl HPVDX - HPV testing requested regardless of diagnosis on current ThinPrep Pap test. ? SPECIMEN ADEQUACY ? Satisfactory for Evaluation - transformation zone component absent GENERAL CATEGORIZATION ? Negative for Intraepithelial Lesion or Malignancy ? Document reviewed and electronically signed by: ? Yao Nazario, CT(ASCP) ? Report Date: ??01/16/2007 10:46 End of Report [facility] 01/08/2007 01/10/2007 Dora Fox APRN PATHOLOGY ORDER ARNEL [facility] [address] [place] [address] documented in this encounter Visit Diagnoses Not on filedocumented in this encounter Care Teams Skimmer Relationship Specialty Start Date End Date Glynn Marquez MD [address] [place] [address] PCP - General 01/11/09 documented as of this encounter
--- OUTSIDE RECORDS SUMMARY | 2024-06-06 00:43 | XMS_ITS | Encounter Summary ---
Author Organization [facility] Address [address] [place] [address] Care Team Providers Care Cosmetology Educator Name Role Phone Glynn Marquez MD Primary Care Provider [phone] Encounter Details Date Type Department Care Team (Latest Contact Info) Description 04/26/2011 10:17 EDT - 04/26/2011 23:59 EDT Hospital Encounter [address] [address] Yg Colin MD [address] [place] [address] DR BECKER [address] [place] [phone] Discharge Disposition: Home or Self Care Social History Tobacco Use Types Packs/Day Years Used Date Smoking Tobacco: Never Assessed Sex and Gender Information Value Date Recorded Sex Assigned at Not on file Gender Identity Not on file Sexual Orientation Not on file documented as of this encounter Discharge Disposition Disposition Code Departure Means Destination Home or Self Half-Way documented in this encounter Plan of Treatment Not on file documented as of this encounter Visit Diagnoses Not on filedocumented in this encounter Care Teams Cosmetology Educator Relationship Specialty Start Date End Date Glynn Marquez MD [address] [place], [place] [address] PCP - General 01/11/09 documented as of this encounter
--- OUTSIDE RECORDS SUMMARY | 2024-06-06 00:43 | XMS_ITS | Encounter Summary ---
Author Organization [facility] Address [address] [place] [address] Care Team Providers Care Inspector Precision Assembly Name Role Phone Glynn Marquez MD Primary Care Provider [phone] Encounter Details Date Type Department Care Team (Late st Contact Info) Description 08/23/2010 Results Only [facility] [address] [place], [place] [address] Elaine Colin MD [address] [place] [address] [address] BECKER [address] [place] [phone] Social History Tobacco Use Types Packs/Day Years Used Date Smoking Tobacco: Never Assessed Sex and Gender Information Value Date Recorded Sex Assigned at Not on file Gender Identity Not on file Sexual Orientation Not on file documented as of this encounter Plan of Treatment Not on file documented as of this encounter Procedures Procedure Name Priority Date/Time Associated Diagnosis Comments CYTOPATHOLOGY Routine 08/23/2010 0:00 EST documented in this encounter Results * CYTOPATHOLOGY (08/23/2010 0:00 EST) Pathology Report: CYTOPATHOLOGY REPORT ? Reports generated via electronic interface contain original data; ? however they are lacking the format of the original report. ? Caution should be taken when reading/interpreti ng unformatted reports. ? Name: ? EMILE AMBROCIO ? Accession #: ? [id number] ? : ? 1955 (Age: 55) ??F ?Collect Date: ? 08/23/2010 ? Location: ? [facility] ? Receive Date: ? 08/24/2010 ? Provider: ELAINE COLIN MD ? Copy to: ? Final Report ? SPECIMEN ADEQUACY ? Satisfactory for Evaluation ? - transformation zone component absent ? GENERAL CATEGORIZATION ? Negative for Intraepithelial Lesion or Malignancy ? Specimen/Source: ??Pap Test, Cervix/Endocervix, ThinPrep Imaging System with ? manual evaluation ? Document reviewed and electronically signed by: ? Lynan Hemanth, CT(ASCP) ? Report ??Date: 08/29/2010 13:14 ? HPV with Pap Test ? Date Ordered: ? 08/29/2010 ? Status: ?? Signed Out ?Date Complete: ? 08/31/2010 ? By: ??System Interface ? Date Reported: ? 08/31/2010 ? Interpretation ? RESULT: Negative for HPV types 16, 18, 31, 33, 35, 39, 45, 51, 52, ? 56, 58, 59, and 68. ? Comments ? Document reviewed and electronically signed by: ? System Interface ? Report date: 08/31/2010 ? By the signature above, the attending physician certifies that he/she has ? personally conducted a gross and/or microscopic examination of the described ? specimens and rendered or confirmed the above diagnosis. ? End of Report ? [facility] 08/23/2010 08/24/2010 Elaine Colin MD PATHOLOGY LUC ARIAS [facility] [address] [place] [address] documented in this encounter Visit Diagnoses Not on filedocumented in this encounter Care Teams Inspector Precision Assembly Relationship Specialty Start Date End Date Glynn Marquez MD [address] [place] [address] PCP - General 01/11/09 documented as of this encounter
--- NOTE | 2024-06-06 10:13 | DI.MAMMO_ITS ---
Exam(s) MAMMO SCREENING EXAM: MAMMO SCREENING CLINICAL HISTORY: screening TECHNIQUE: Bilateral full field digital CC and MLO mammographic images were obtained with 3D tomosyn thesis and utilizing computer aided detection (CAD). COMPARISON: Available for comparison. FINDINGS: Masses/Architectural Distortion: None seen. Microcalcifications: No suspicious pleomorphic-type are seen. Skin Thickening/Nipple Retraction: None. IMPRESSION: 1. No significant interval change with no specific features of malignancy noted. 2. Unless there is more urgent need, screening mammography is recommended, as per [employer] guidelines. BI-RADS Category 1 - Negative Breast Density - Category B - Scattered areas of fibroglandular density Breast density category C or D implies that the patient has dense breast tissue. Dense breast tissue is very common and is not abnormal but dense breast tissue can make it harder to find cancer on a ma mmogram. Also, dense breast tissue may increase their breast cancer risk. This information about the result of the mammogram report was provided to the patient to raise their awareness. Use this report when you speak with the patient about their risks for breast cancer, which includes their family hist ory. At that time, you may recommend for more screening tests (Ultrasound or MRI) as they might be us eful based on their risk. A negative radiographic report should not delay biopsy if a dominant or clinically suspicious mass is present. Up to ten percent of cancers are not identified on mammography. A negative report may reinforce clinical impression. Adenosis and dense breasts may obscure an underlying neoplasm. False positive reports average 6 to 10%. Patient will receive a letter notifying them of these results.
== END 2024-06-06 00:57 ==
LOC: DI 00:38
PROVIDERS: PCP Nurse Practitioner Adult Health; Visit Provider Obstetrics & Gynecology
DX: Z12.31 Encounter for screening mammogram for malignant neoplasm of breast (principal); R92.333 Mammographic heterogeneous density, bilateral breasts
CPT/HCPCS: 77063; 77067